=== PATIENT | female | born 1980 | race Caucasian/White ===

== ENCOUNTER 2018-04-10 18:00 | Emergency (ER) | payer OTHER ==
[~2018-04-10] VITALS: Ht 165.1 cm; Wt 127.0 kg
[~2018-04-10 18:00] MED LIST: AMOXICILLIN500 M3 PO; BACTRIM DS TAB1 EACH PO; IBUPROFEN600 M1 PO; IBUPROFEN800 M1 PO; PERCOCET 325 MG1 TA2 PO; ULTRAM50 M1 PO; VIBRAMYCIN100 MG PO; VICODIN5-300 PO
[2018-04-10 22:22] LABS: ABSOLUTE BASOPHIL COUNT 0 /CUMM (0.0-0.2); ABSOLUTE EOSINOPHIL COUNT 0 /CUMM (0.0-0.7); ABSOLUTE GRANULOCYTE CT 7.5 /CUMM (1.4-6.5); ABSOLUTE LYMPH COUNT 1.4 /CUMM (1.2-3.4); ABSOLUTE MONOCYTE COUNT 0.3 /CUMM (0.10-0.60); BASOPHIL % 0.3 % (0.0-2.0); EOSINOPHIL % 0.2 % (0-5); GRANULOCYTE % 81.1 % (42.2-75.2); HEMATOCRIT 41.2 % (37-47); MEAN CORPUSCULAR HGB 29.1 PG (27.0-31.0); MEAN CORPUSCULAR HGB CONC 32.9 G/DL (33.0-37.0); MEAN CORPUSCULAR VOLUME 88.7 FL (81.0-99.0); MEAN PLATELET VOLUME 7.7 FL (7.4-10.4); PLATELET COUNT 257 /CUMM (130-400); RED BLOOD CELL CT 4.65 /CUMM (4.20-5.40); WHITE BLOOD CELL COUNT 9.3 /CUMM (4.8-10.8)
--- NOTE | 2018-04-10 22:59 | ED GENERAL ADULT ---
History of Present Illness General Chief Complaint: Upper Extremity Problem Stated Complaint: CELLULITIS Source: patient, old records Exam Limitations: no limitations Vital Signs & Intake/Output Vital Signs & Intake/Output Vital Signs Date Time Temp Pulse Resp B/P B/P Pulse O2 O2 Flow FiO2 Mean Ox Delivery Rate 04/10 2356 98.2 77 20 142/97 99 Room Air 04/10 2303 98.0 88 16 125/73 98 Room Air 04/10 1945 97.1 104 18 149/75 90 04/10 1810 97.2 100 18 142/95 95 Room Air ED Intake and Output 04/11 0000 04/10 1200 Intake Total 0 Output Total Balance 0 Intake, Oral 0 Patient 280 lb Weight Weight Estimated Measurement Method Allergies Coded Allergies: NO KNOWN ALLERGIES (02/23/15) Triage Note: PT STATES SHE WAS SEEN HERE SUNDAY FOR AN ABCESS BENEATH HER RIGHT ARM. PT HAS SKIN MARKER TO AREA REDNESS HAS INCREASED PASSED SKIN MARKER AND PT STATES SHE HAS BEEN HAVING NAUSEA. PT STATES SHE WAS PUT ON BACTRUM AND IT IS NOT GETTING BETTER. Triage Nurses Notes Reviewed? yes Onset: Abrupt Duration: day(s): (2), constant, continues in ED, getting worse Timing: single episode today Injury Environment: home Severity: mild, moderate Severity Numbers: 6 No Modifying Factors: none LMP (ages 10-50): unknown : No Patient currently breastfeeds: No HPI: 37-year-old female history of neuralgia, depression, obesity presents for reevaluation of cellulitis and abscess. 2 days ago patient had an incision and drainage of an abscess in her right axillary area. She was started on Bactrim and amoxicillin a culture was obtained she was told to return with spreading redness. Patient states that the redness has spread outside of the marked line. She also developed some nausea associated taking antibiotics no vomiting or abdominal pain. No fever there's been small amounts of serous discharge from the area. No swelling no numbness to tingling she is not a diabetic. Patient has taken 3 doses of Bactrim since the incision and drainage. (Haseeb MARTINEZ,Raulito) Reconcile Medications Amoxicillin 500 MG TABLET 1 TAB PO BID CELLULITIS Doxycycline Hyclate (Vibramycin) 100 MG CAPSULE 1 CAP PO BID cellulitis HYDROCODONE/ACETAMINOPHEN (Hydrocodon-Acetaminophen 5-325) 1 TAB TAB 1 TAB PO Q6HR PRN PAIN Ibuprofen 800 MG TABLET 1 TAB PO 4 TIMES/DAY PRN pain Ibuprofen 600 MG TABLET 1 TAB PO Q6PRN PRN pain, fever with food Ondansetron (Zofran Odt) 4 MG TAB.RAPDIS 1 TAB SL TID PRN NAUSEA OXYCODONE HCL/ACETAMINOPHEN (Percocet 5-325 MG Tablet) 325 MG/5 MG TAB 1 TAB PO Q4-6 PRN PRN PAIN Sulfamethoxazole/Trimethoprim (Bactrim Ds Tablet) 800 MG-160 MG TABLET 1 TAB PO BID CELLULITIS Tramadol HCl (Ultram) 50 MG TABLET 1-2 TAB PO 4 TIMES/DAY PRN pain sixty...[id number] (Hoa FLANAGAN,Chandana) Past History Travel History Traveled to [place] past 21 day No Medical History Any Pertinent Medical History? 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 No (Raulito Cheema) Review of Systems Review of Systems Constitutional: Reports: no symptoms. EENTM: Reports: no symptoms. Respiratory: Reports: no symptoms. Cardiovascular: Reports: no symptoms. GI: Reports: no symptoms. Genitourinary: Reports: no symptoms. Musculoskeletal: Reports: no symptoms. Skin: Reports: see HPI, erythema, lesions. Neurological/Psychological: Reports: no symptoms. Hematologic/Endocrine: Reports: no symptoms. Immunologic/Allergic: Reports: no symptoms. All Other Systems: Reviewed and Negative (Raulito Cheema) Physical Exam Physical Exam General Appearance: well developed/nourished, no apparent distress, alert, awake , obese Head: atraumatic, normal appearance Eyes: Bilateral: normal appearance, EOMI. Ears, Nose, Throat: hearing grossly normal Neck: normal inspection, supple, full range of motion Respiratory: normal breath sounds, chest non-tender, no respiratory distress, lungs clear Cardiovascular: regular rate/rhythm, normal peripheral pulses Peripheral Pulses: 2+ radial (R), 2+ radial (L) Gastrointestinal: soft, non-tender Back: normal inspection, normal range of motion Extremities: normal range of motion, INCISION AND DRAINAGE SITE IN THE RIGHT AXILLARY/RIGHT UNDERARM AREA: THE ERYTHEMA HAS EXTENDED BEYOND THE PREVIOUSLY MARKED LINE. tHERE APPEARS TO BE IN NEW AREA OF ERYTHEMA LOCATED SEVERAL CENTIMETERS DISTAL TO THE PREVIOUS CAROL. tHERE IS NO FOCAL FLUCTUANT AREAS. iNCISION AND DRAINAGE SITE IS CLEAN WITHOUT PURULENT DISCHARGE. nO LYMPHADENOPATHY NO LYMPHATIC STREAKING FULL RANGE OF MOTION AND INTACT NEUROVASCULAR SUPPLY INTACT Neurologic/Psych: no motor/sensory deficits, awake, alert, oriented x 3, normal gait, normal mood/affect Skin: intact, normal color, cyanosis Lymphatic: no anterior cervical arely Core Measures ACS in differential dx? No CVA/TIA Diagnosis: No Sepsis Present: No Sepsis Focused Exam Completed? No (Haseeb MARTINEZ,Raulito) Progress Differential Diagnoses I considered the following diagnoses in my evaluation of the patient: [Abscess, cellulitis, sepsis] Plan of Care: Orders Procedure Date/time Status LACTIC ACID 04/10 2103 Complete COMPREHENSIVE METABOLIC PANEL 04/10 2103 Complete CBC WITHOUT DIFFERENTIAL 04/10 2103 Complete Current Medications Sig/David Start time Last Medication Dose Stop Time Status Admin Vancomycin HCl 2,000 MG ONCE ONE 04/10 2300 AC 04/10 Sodium Chloride 500 ML 04/11 0059 2304 (Normal Saline 0.9%) Laboratory Tests 04/11/18 0003: Lactic Acid Cancelled 04/10/18 2210: Anion Gap 15, Estimated GFR > 60, BUN/Creatinine Ratio 16.7, Glucose 145 H, Lactic Acid 1.0, Calcium 9.3, Total Bilirubin 0.4, AST 38 H, ALT 47, Alkaline Phosphatase 104, Total Protein 8.4 H, Albumin 4.4, Globulin 4.0, Albumin/ Globulin Ratio 1.1, CBC w Diff NO MAN DIFF REQ, RBC 4.65, MCV 88.7, MCH 29.1, MCHC 32.9 L, RDW 14.0, MPV 7.7, Gran % 81.1 H, Lymphocytes % 14.7 L, Monocytes % 3.7, Eosinophils % 0.2, Basophils % 0.3, Absolute Granulocytes 7.5 H, Absolute Lymphocytes 1.4, Absolute Monocytes 0.3, Absolute Eosinophils 0, Absolute Basophils 0 Patient seen and evaluated. She is here for a recheck after an incision and drainage 2 days ago. She's taken 3 doses of Bactrim. The redness has spread outside of the previously marked area. She is afebrile not a diabetic. We'll check basic labs and will reassess. Culture from incision and drainage grew MRSA susceptible to Bactrim. Blood work is within normal limits with blood cell count is negative lactic acid is negative. Patient remains afebrile she is not a diabetic. Discussed with patient about possible treatment plans including admission for IV antibiotics versus discharge with close follow-up. Patient will be for discharge with close follow-up. Patient is only been on antibiotics for 36 hours. She is young otherwise healthy. Patient was given a dose of 2 g IV vancomycin. Advised to discontinue amoxicillin and continue Bactrim. A new carol Was made over the area of erythema. Return to the emergency department in 1-2 days for recheck. Discussed with patient about return precautions and the importance of close follow-up. If the erythema continues to spread she has fever or no improvement she'll need to be admitted for IV antibiotics. Case discussed with Dr. LOYOLA and he agrees. Initial ED EKG: none (Raulito Cheema) Departure Departure Disposition: HOME OR SELF CARE Condition: Stable Clinical Impression Primary Impression: Cellulitis due to MRSA Referrals: Gavino Mancia MD (PCP/Family) Additional Instructions: Continue to take Bactrim as directed for the full course. Amoxicillin can be discontinued. Zofran for nausea and naproxen for pain. Apply warm compresses for 15-20 minutes every few hours. Change dressing once daily keep the area clean and dry. It is very important that he monitor symptoms. If the redness continues to spread or does not improve, if you have fever or any other concerns need to return immediately for admission for IV antibiotics. He should return to the emergency department in 2 days for a recheck. Return sooner with any concerns. Departure Forms: Customer Survey General Discharge Information Prescriptions: Current Visit Scripts Ondansetron (Zofran Odt) 1 TAB SL TID PRN NAUSEA #10 TAB (Raulito Cheema) PA/METAL CONTROL COORDINATOR Co-Sign Statement Statement: ED Attending supervision documentation- I saw and evaluated the patient. I have also reviewed all the pertinent lab results and diagnostic results. I agree with the findings and the plan of care as documented in the PA's/METAL CONTROL COORDINATOR's documentation. x I have reviewed the ED Record and agree with the PA's/METAL CONTROL COORDINATOR's documentation. [] Additions or exceptions (if any) to the PAs/METAL CONTROL COORDINATOR's note and plan are summarized below: [] (Hao FLANAGAN,Chandana) Critical Care Note Critical Care Note Critical Care Time: non-applicable (Haseeb MARTINEZ,Raulito)
[2018-04-10] MEDS ORDERED: ZOFRAN ODT4 M1 SL (23:35)
[2018-04-10 23:56] VITALS: BP 142/97
== END 2018-04-11 01:19 ==
LOC: ERH 18:00
PROVIDERS: Physician Assistant Medical
DX: L03.113 Cellulitis of right upper limb (principal); L02.413 Cutaneous abscess of right upper limb
CPT/HCPCS: 99281; J1885; J3101; J3370; J7040

== ENCOUNTER 2018-06-08 17:02 | Emergency (ER) | payer OTHER ==
[~2018-06-08] VITALS: Ht 165.1 cm; Wt 137.0 kg
[~2018-06-08 17:02] MED LIST changes: +ZOFRAN ODT4 M1 SL
[2018-06-08 17:16] VITALS: BP 128/89
[2018-06-08] MEDS ORDERED: CLONAZEPAM0.5 M2 PO (18:29)
[2018-06-08] MEDS ORDERED: SERTRALINE HCL100 MG PO (18:29)
[2018-06-08] MEDS ORDERED: CLONIDINE HCL0.1 MG PO (18:30)
[2018-06-08] MEDS ORDERED: NAPROXEN500 M2 PO (18:30)
[2018-06-08] MEDS ORDERED: LEVOTHYROXINE25 MCG PO (18:30)
[2018-06-08] MEDS ORDERED: IBUPROFEN800 M1 PO (18:56)
--- NOTE | 2018-06-08 19:08 | ED GENERAL ADULT ---
History of Present Illness General Chief Complaint: Eye Problems Stated Complaint: PT RT IS SWOLLENING SOME Source: patient Exam Limitations: no limitations Vital Signs & Intake/Output Vital Signs & Intake/Output Vital Signs Date Time Temp Pulse Resp B/P B/P Pulse O2 O2 Flow FiO2 Mean Ox Delivery Rate 06/08 1739 Room Air 06/08 1716 98.5 93 18 128/89 99 Room Air Allergies Coded Allergies: NO KNOWN ALLERGIES (02/23/15) Reconcile Medications Clonazepam 0.5 MG TABLET 1 TAB PO DAILY PRN ANXIETY (Reported) Clonidine HCl 0.1 MG TABLET 1 TAB PO QHS MENTAL HEALTH (Reported) Ibuprofen 800 MG TABLET 1 TAB PO TID PRN pain Levothyroxine Sodium 25 MCG TABLET 1 TAB PO DAILY THYROID (Reported) Naproxen 500 MG TABLET 1 TAB PO BID PRN PAIN/INFLAMMATION (Reported) Sertraline HCl 100 MG TABLET 2 TAB PO DAILY MENTAL HEALTH (Reported) Triage Note: 38F TO ED FOR RIGHT EYE LOWER LID PAIN ?STYE, NOTICED PAIN STARTED YESTERDAY. NO DRAINAGE. SCLERA TO EYE WNL AND NO BLURRED VISION. Triage Nurses Notes Reviewed? yes Onset: Gradual Duration: day(s): Timing: constant : No Patient currently breastfeeds: No HPI: 38-year-old female with a history of fibromyalgia and depression presenting with pain and swelling to her right lower eyelid since yesterday. Denies any eye trauma. Denies visual changes, eye pain, eye discharge. Does not wear glasses or contacts. Has not tried anything for pain relief. (Sonia Albright) Past History Travel History Traveled to [place] past 21 day No Medical History Any Pertinent Medical History? 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 No (Sonia Albright) Review of Systems Review of Systems Constitutional: Reports: no symptoms. EENTM: Reports: see HPI. Respiratory: Reports: no symptoms. Cardiovascular: Reports: no symptoms. GI: Reports: no symptoms. Genitourinary: Reports: no symptoms. Musculoskeletal: Reports: no symptoms. Skin: Reports: no symptoms. Neurological/Psychological: Reports: no symptoms. Hematologic/Endocrine: Reports: no symptoms. Immunologic/Allergic: Reports: no symptoms. All Other Systems: Reviewed and Negative (Sonia Albright) Physical Exam Physical Exam General Appearance: well developed/nourished, no apparent distress, alert, awake , comfortable Head: atraumatic, normal appearance Eyes: Bilateral: PERRL, EOMI. Ears, Nose, Throat: normal ENT inspection Neck: normal inspection Respiratory: normal breath sounds, lungs clear Cardiovascular: regular rate/rhythm Gastrointestinal: soft, non-tender Back: normal inspection Extremities: normal inspection Neurologic/Psych: awake, alert, oriented x 3, normal gait, normal mood/affect Skin: intact, normal color, warm/dry Comments: On exam of the right eye there is a punctate area of erythema and edema to the medial lower eyelid, no visible discharge from the lesion, no ocular discharge, sclera white, conjunctiva pink, no conjunctival injections, pupils equally round and reactive, EOMs intact, visual acuity 20/20 in the right eye. Core Measures ACS in differential dx? No CVA/TIA Diagnosis: No Sepsis Present: No Sepsis Focused Exam Completed? No (Sonia Albright) Progress Differential Diagnoses I considered the following diagnoses in my evaluation of the patient: [Hordeolum versus Chalasion, low concern for conjunctivitis versus foreign body versus iritis versus episcleritis] Plan of Care: Patient's exam is consistent with a hordeolum. Counseled on supportive care with warm compresses. Given strict return precautions. Initial ED EKG: none (Sonia Albright) Departure Departure Disposition: HOME OR SELF CARE Condition: Stable Clinical Impression Primary Impression: Hordeolum of right eye Referrals: Gavino Mancia MD (PCP/Family) Additional Instructions: Apply warm compresses 2-3 times daily to the affected eye. Follow up with your primary care provider for reevaluation. Return to the emergency department for any new or worsening symptoms. Departure Forms: Customer Survey General Discharge Information Prescriptions: Current Visit Scripts Ibuprofen 1 TAB PO TID PRN pain #30 TAB (Sonia Albright) PA/TRAIN DIRECTOR Co-Sign Statement Statement: ED Attending supervision documentation- [] I saw and evaluated the patient. I have also reviewed all the pertinent lab results and diagnostic results. I agree with the findings and the plan of care as documented in the PA's/TRAIN DIRECTOR's documentation. [x] I have reviewed the ED Record and agree with the PA's/TRAIN DIRECTOR's documentation. [] Additions or exceptions (if any) to the PAs/TRAIN DIRECTOR's note and plan are summarized below: [] (Alejandro Huynh DO) Critical Care Note Critical Care Note Critical Care Time: non-applicable (Marlen MARTINEZ,Sonia)
== END 2018-06-08 19:10 ==
LOC: ERH 17:02
DX: H00.012 Hordeolum externum right lower eyelid (principal)

== ENCOUNTER 2018-07-31 21:20 | Emergency (ER) | payer OTHER ==
[~2018-07-31 21:20] MED LIST changes: +CLONAZEPAM0.5 M2 PO; +CLONIDINE HCL0.1 MG PO; +LEVOTHYROXINE25 MCG PO; +NAPROXEN500 M2 PO; +SERTRALINE HCL100 MG PO
--- NOTE | 2018-07-31 22:24 | RADIOLOGY REPORT ---
EXAMINATION: XR ANKLE, LEFT CLINICAL INFORMATION: Soft tissue swelling. Pain. COMPARISON: 12/23/2015 TECHNIQUE: AP, lateral, and mortise views of the left ankle. FINDINGS: Is a lateral metallic plate and a medial malleolar metallic round plate which is stable compared to previous study. There is an old unhealed fracture tip of medial malleolus . There is bimalleolar soft tissue swelling. The ankle mortise and subtalar joints are normal. A small calcaneal heel and retrocalcaneal spur is seen. IMPRESSION: Old unhealed fracture tip of medial malleolus. A lateral fibular plate and screws for an old healed fracture is noted. No new acute fractures seen. There is bimalleolar soft tissue swelling.
[2018-08-01 00:30] VITALS: BP 136/93
--- NOTE | 2018-08-01 00:38 | ED ANKLE/FOOT INJURY COMPLAINT ---
History of Present Illness General Chief Complaint: Lower Extremity Injury Stated Complaint: "UM MY LEFT ANKLE IS SWOLLEN" Source: patient Exam Limitations: no limitations Vital Signs & Intake/Output Vital Signs & Intake/Output Vital Signs Date Time Temp Pulse Resp B/P B/P Pulse O2 O2 Flow FiO2 Mean Ox Delivery Rate 08/01 0030 97.0 98 18 136/93 99 07/31 2134 135/94 07/310 98.9 103 16 97 Room Air Allergies Coded Allergies: NO KNOWN ALLERGIES (02/23/15) Reconcile Medications Clonazepam 0.5 MG TABLET 1 TAB PO DAILY PRN ANXIETY (Reported) Clonidine HCl 0.1 MG TABLET 1 TAB PO QHS MENTAL HEALTH (Reported) Ibuprofen 800 MG TABLET 1 TAB PO TID PRN pain Levothyroxine Sodium 25 MCG TABLET 1 TAB PO DAILY THYROID (Reported) Meloxicam (Mobic) 7.5 MG TABLET 1 TAB PO DAILY PRN pain take with food Naproxen 500 MG TABLET 1 TAB PO BID PRN PAIN/INFLAMMATION (Reported) Sertraline HCl 100 MG TABLET 2 TAB PO DAILY MENTAL HEALTH (Reported) Triage Note: PT TO ED WITH C/O ACUTE ON CHRONIC SWELLING TO LLE. REPORTS BOTH LEGS ARE ALWAYS SWOLLEN, BUT OVER THE PAST MONTH PAIN AND SWELLING INCREASED TO LEFT LEG AND ANKLE. HX SURGERY TO REPAIR FRACTURE IN LEFT ANKLE 1 YR AGO. DENIES NEW INJURY. Triage Nurses Notes Reviewed? yes Duration: week(s): Severity: moderate : No Patient currently breastfeeds: No HPI: 38yo female with hx of obesity, HTN, fibromyalgia, left ankle fx s/p surgical repair presents to ED complaining of worsening swelling and pain to left ankle and calf x few weeks. Patient reports baseline swelling and pain since her fracture and surgery of this ankle over one year ago. She states she believes the swelling is now worse and reports chonic pain in the ankle. There was no new injury or trauma. The patient denies recent travel, dyspnea, numbness, bruising. (Sara MARTINEZ,Tasha Hoffmann) Past History Travel History Traveled to [place] past 21 day No Medical History Any Pertinent Medical History? 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 No (Tasha Mena) Review of Systems Review of Systems Constitutional: Reports: no symptoms. EENTM: Reports: no symptoms. Respiratory: Reports: no symptoms. Cardiovascular: Reports: no symptoms. GI: Reports: no symptoms. Genitourinary: Reports: no symptoms. Musculoskeletal: Reports: see HPI. Skin: Reports: no symptoms. Neurological/Psychological: Reports: no symptoms. Hematologic/Endocrine: Reports: no symptoms. Immunologic/Allergic: Reports: no symptoms. All Other Systems: Reviewed and Negative (Tasha Mena) Physical Exam Physical Exam General Appearance: well developed/nourished, no apparent distress, alert, awake Head: atraumatic, normal appearance Eyes: Bilateral: normal appearance. Ears, Nose, Throat: hearing grossly normal Neck: normal inspection, supple, full range of motion Cardiovascular/Respiratory: normal peripheral pulses Back: normal inspection, normal range of motion Leg/Knee/Thigh Left: 1-2+ pitting edema of lower extremity Leg/Knee/Thigh Right: 1+ pitting edema of lower extremity Ankle Left: swelling, healed surgical scars, diffuse tenderness, limited ROM with plantar flexion Ankle Right: normal inspection, normal range of motion Foot Left: normal inspection, normal range of motion Foot Right: normal inspection, normal range of motion Neuro/Vascular: normal motor function, L dorsalis pedis pulse 2+ Psychiatric: awake, alert, oriented x 3 Skin: intact, normal color, warm/dry (Tasha Mena) Progress Differential Diagnosis: DVT, CHF, arterial insufficiency, fracture, sprain, contusion Plan of Care: Patient's x-rays show stable hardware, soft tissue swelling, no acute abnormality. Patient has had chronic pain and swelling in this ankle since her surgery. There is the possibility of DVT however ultrasound is not available in the emergency department at this time. Given the patient's chronic swelling, not have a high suspicion for DVT. Will have patient follow up with outpatient ultrasound, given low suspicion for DVT, prophylactic anticoagulation was not initiated. The patient was also encouraged to follow-up with her orthopedic physician regarding her chronic pain. Patient ambulatory here in the emergency department. She agrees with the plan of care. She is neurovascularly intact. Diagnostic Imaging: Viewed by Me: Radiology Read. Discussed w/RAD: Radiology Read. Radiology Impression: PATIENT: WENDY VARELA PRESENT AGE: 38 PATIENT ACCOUNT NO: [id number] : 82 LOCATION: [facility] ORDERING PHYSICIAN: Alejandro Huynh DO SERVICE DATE: 07/31/18 EXAM TYPE: RAD - XRY-ANKLE 3 OR MORE VIEWS L EXAMINATION: XR ANKLE, LEFT CLINICAL INFORMATION: Soft tissue swelling. Pain. COMPARISON: 12/23/2015 TECHNIQUE: AP, lateral, and mortise views of the left ankle. FINDINGS: Is a lateral metallic plate and a medial malleolar metallic round plate which is stable compared to previous study. There is an old unhealed fracture tip of medial malleolus . There is bimalleolar soft tissue swelling. The ankle mortise and subtalar joints are normal. A small calcaneal heel and retrocalcaneal spur is seen. IMPRESSION: Old unhealed fracture tip of medial malleolus. A lateral fibular plate and screws for an old healed fracture is noted. No new acute fractures seen. There is bimalleolar soft tissue swelling. DICTATED BY: Eladio Maxwell MD DATE/TIME DICTATED:07/31/182218 ENERGY CONSERVATION SPECIALIST:PURNIMA DATE/TIME TRANSCRIBED:2218 CONFIDENTIAL, DO NOT COPY WITHOUT APPROPRIATE AUTHORIZATION. < Electronically signed in Other Vendor System> SIGNED BY: Eladio Maxwell MD [id number] (Tasha Mena) Departure Departure Disposition: HOME OR SELF CARE Condition: Stable Clinical Impression Primary Impression: Ankle pain Qualifiers: Chronicity: chronic Laterality: left Qualified Codes: M25.572 - Pain in left ankle and joints of left foot; G89.29 - Other chronic pain Secondary Impressions: Leg swelling Referrals: Gavino Mancia MD (PCP/Family) Additional Instructions: Take meloxicam instead of naproxen, take this medication with food. Follow-up with pain management. Follow-up with outpatient ultrasound to assess for blood clot. Return if worsening symptoms or concerns. Please note that there might be incidental findings in your evaluation that are unrelated to the current emergency department visit. Please notify your primary care doctor about this emergency department visit in order to obtain and review all of the testing performed so that these incidental findings can be monitored as needed. If you had an x-ray performed, please understand that some fractures may not be seen on the initial set of x-rays. If your symptoms persist you might need a repeat set of x-rays to check for such a fracture. If you had a laceration evaluated, please understand that foreign bodies such as glass or wood may not be visible to the naked eye or on plain x-rays. If the wound becomes red, swollen, increasingly more painful or if there is any drainage from the wound, please have it reevaluated by a physician for the possibility of a retained foreign body. If you're unable to follow up as outlined in the discharge instructions please return to the emergency department. Thank you for choosing the [facility] Emergency Department for your care. It was a pleasure to serve you today. Departure Forms: Customer Survey General Discharge Information Prescriptions: Current Visit Scripts Meloxicam (Mobic) 1 TAB PO DAILY PRN pain #15 TAB take with food (Sara MARTINEZ,Tasha Hoffmann) PA/MANAGER GLOBAL Co-Sign Statement Statement: ED Attending supervision documentation- I saw and evaluated the patient. I have also reviewed all the pertinent lab results and diagnostic results. I agree with the findings and the plan of care as documented in the PA's/MANAGER GLOBAL's documentation. x I have reviewed the ED Record and agree with the PA's/MANAGER GLOBAL's documentation. [] Additions or exceptions (if any) to the PAs/MANAGER GLOBAL's note and plan are summarized below: [] (Hoa FLANAGAN,Chandana)
[2018-08-01] MEDS ORDERED: MOBIC7.5 M1 PO (00:48)
== END 2018-08-01 01:02 ==
LOC: ERH 21:20
DX: M25.579 Pain in unspecified ankle and joints of unspecified foot (principal); M79.89 Other specified soft tissue disorders; M79.7 Fibromyalgia; F32.9 Major depressive disorder, single episode, unspecified; E05.90 Thyrotoxicosis, unspecified without thyrotoxic crisis or storm
CPT/HCPCS: 73610-LT